=== PATIENT | male | born 1940 | race African-American/Black ===

== ENCOUNTER 2020-04-02 20:58 | Inpatient (IN) | payer OTHER, MEDICAID ==
[~2020-04-02] VITALS: Ht 170.2 cm; Wt 84.5 kg
[2020-04-03] MEDS ORDERED: SODIUM CHLORIDE 0.9% 1,000 ML IV ONE ×2 (01:45→03:00)
[2020-04-03] MEDS ORDERED: ASPIRIN 81MG TABLET PO ONE (01:45)
[2020-04-03 02:23] LABS: BASOPHILS % 0.3 % (0.0-2.0); HEMATOCRIT. 44.4 % (42.0-52.0); HEMOGLOBIN. 14.4 g/dL (14.0-18.0); LYMPHOCYTES % 8.7 % (20.0-50.0); MEAN CORPUSCULAR HEMOGLOBIN 30.6 pg (28.0-32.0); MEAN CORPUSCULAR VOLUME 94.1 fL (80.0-94.0); MEAN PLATELET VOLUME 8.5 fl (7.4-10.4); MONOCYTES % 5.1 % (2.0-8.0); NEUTROPHILS % 85.9 % (40.0-76.0); PLATELET 147 x1000/uL (130-400); RED BLOOD CELL COUNT 4.72 mill/uL (4.7-6.1); RED CELL DISTRIBUTION WIDTH 12.8 % (11.6-14.6)
[2020-04-03 02:30] LABS: CHLORIDE 95 mEq/L (98-107)
[2020-04-03 02:36] LABS: ETHANOL BLOOD < 10 mg/dL
[2020-04-03 02:40] LABS: BETA HYDROXYBUTYRATE 0.3 mMol/L (0.0-0.3)
[2020-04-03] MEDS ORDERED: INSULIN LISPRO 100 UNITS/ML SUBCUT NR (03:15)
[2020-04-03] MEDS ORDERED: ENOXAPARIN 100MG/ML SYR SUBCUT NR (03:45)
[2020-04-03 04:16] LABS: INR 1.4; PARTIAL THROMBOPLASTIN TIME 28.1 sec (23.4-31.0); PROTHROMBIN TIME 14.2 sec (9.6-11.0)
[2020-04-03 05:00] LABS: *BARBITURATES SCREEN URINE NEGATIVE (NEGATIVE); *BENZODIAZEPINES SCREEN URINE NEGATIVE (NEGATIVE); *COCAINE SCREEN URINE NEGATIVE (NEGATIVE)
[2020-04-03 05:01] LABS: *AMPHETAMINES SCREEN URINE NEGATIVE (NEGATIVE); CANNABINOID URINE SCREEN NEGATIVE (NEGATIVE); METHADONE URINE SCREEN NEGATIVE (NEGATIVE); OPIATES URINE SCREEN NEGATIVE (NEGATIVE); PHENCYCLIDINE URINE SCREEN NEGATIVE (NEGATIVE)
[2020-04-03] MEDS ORDERED: CEFTRIAXONE 1 G PREMIX 50 ML IV NR (14:00)
[2020-04-03] MEDS: ERGOCALCIFEROL 50000UNITS CAPSULE PO SCH (15:27)
[2020-04-03] MEDS: DOXYCYCLINE HYCLATE 100MG CAPSULE PO SCH ×2 (15:27→22:58)
[2020-04-03] MEDS ORDERED: DEXTROSE 50% WATER 50ML SYRINGE IV PRN (17:45)
[2020-04-03] MEDS ORDERED: ACETAMINOPHEN 325MG TABLET PO PRN (17:45)
[2020-04-03] MEDS ORDERED: ONDANSETRON HCL 4MG/2ML INJ IV PRN (17:45)
[2020-04-03] MEDS ORDERED: ALBUTEROL 6.7GM HFA INHALER ORI PRN (17:45)
[2020-04-03] MEDS ORDERED: MAGNESIUM/ALUMINUM HYDROXIDE/SIMETHICONE 30ML UDC PO PRN (17:45)
[2020-04-03] MEDS ORDERED: DIPHENHYDRAMINE 50MG/ML VIAL IV PRN (17:45)
[2020-04-03] MEDS ORDERED: ENOXAPARIN 100MG/ML SYR SUBCUT SCH (18:00)
[2020-04-03] MEDS ORDERED: DEXAMETHASONE 10 MG/ML VIAL IV SCH (18:00)
[2020-04-03] MEDS: INSULIN LISPRO 100 UNITS/ML SUBCUT SCH (18:20)
[2020-04-03] MEDS ORDERED: ZOLPIDEM TARTRATE 5MG TABLET PO PRN (21:00)
[2020-04-03] MEDS: BLOOD SUGAR DIAGNOSTIC STRIP TEST SCH (21:00)
[2020-04-03] MEDS: SODIUM CHLORIDE 0.9% INJ 3ML FLUSH IVF SCH (22:00)
[2020-04-03] MEDS: FAMOTIDINE 20MG TABLET PO SCH (22:58)
[2020-04-03] MEDS: INSULIN GLARGINE UD 100 UNITS/ML SYR SUBCUT SCH (22:59)
[2020-04-03] MEDS: GUAIFENESIN 600MG ER TABLET PO SCH (22:59)
[2020-04-04] MEDS: BLOOD SUGAR DIAGNOSTIC STRIP TEST SCH ×4 (07:30→21:00)
[2020-04-04] MEDS ORDERED: CEFTRIAXONE 1,000 MG in DEXTROSE 5% WATER 50 ML IV SCH (09:00)
[2020-04-04] MEDS: SODIUM CHLORIDE 0.9% INJ 3ML FLUSH IVF SCH ×3 (09:38→22:00)
[2020-04-04] MEDS ORDERED: CEFTRIAXONE SODIUM 1 G/VIAL ONE (09:38)
[2020-04-04 10:14] LABS: CHLORIDE 110 mEq/L (98-107)
[2020-04-04 10:16] LABS: HEMATOCRIT. 36.4 % (42.0-52.0); HEMOGLOBIN. 12.3 g/dL (14.0-18.0); MEAN CORPUSCULAR VOLUME 91.5 fL (80.0-94.0); MEAN PLATELET VOLUME 9.1 fl (7.4-10.4); PLATELET 116 x1000/uL (130-400); RED BLOOD CELL COUNT 3.97 mill/uL (4.7-6.1); RED CELL DISTRIBUTION WIDTH 12.7 % (11.6-14.6)
[2020-04-04] MEDS: INSULIN LISPRO 100 UNITS/ML SUBCUT SCH ×3 (12:00→21:00)
[2020-04-04] MEDS: DEXAMETHASONE 10 MG/ML VIAL IV SCH (13:06)
[2020-04-04] MEDS: GUAIFENESIN 600MG ER TABLET PO SCH ×2 (13:07→23:31)
[2020-04-04] MEDS: DOXYCYCLINE HYCLATE 100MG CAPSULE PO SCH ×2 (13:07→23:31)
[2020-04-04] MEDS: FAMOTIDINE 20MG TABLET PO SCH ×2 (13:07→23:31)
[2020-04-04 13:57] LABS: PLATELET ESTIMATE SLIGHTLY DECREASED
[2020-04-04] MEDS: INSULIN GLARGINE UD 100 UNITS/ML SYR SUBCUT SCH (23:32)
[2020-04-05 00:20] VITALS: BP 159/98
[2020-04-05 04:00] VITALS: BP 136/80
[2020-04-05] MEDS: SODIUM CHLORIDE 0.9% INJ 3ML FLUSH IVF SCH ×3 (05:21→23:23)
[2020-04-05] MEDS: BLOOD SUGAR DIAGNOSTIC STRIP TEST SCH ×4 (06:48→21:36)
[2020-04-05 08:00] VITALS: BP 131/85
[2020-04-05] MEDS: INSULIN LISPRO 100 UNITS/ML SUBCUT SCH ×4 (08:10→21:00)
[2020-04-05] MEDS: ENOXAPARIN 40MG/0.4ML SYR SUBCUT SCH ×2 (09:00→09:53)
[2020-04-05 09:39] LABS: BG CARBOXYHEMOGLOBIN 0.7 % (0.5-1.5); BG DEOXYHEMOGLOBIN 7.2 % (0.0-5.0); BG METHEMOGLOBIN 0.3 % (0.0-1.5); BG OXYGEN SATURATION 92.7 % (92.0-98.5); BG OXYHEMOGLOBIN 91.8 % (94.0-97.0); BG PCO2 37.9 mmHg (35.0-45.0); BG PH 7.438 (7.350-7.450); BG PO2 65.6 mmHg (75.0-100.0); BG SAMPLE SITE RIGHT RADIAL; BG TOTAL HEMOGLOBIN 13.9 g/dL (12.0-18.0); BG VENT MODE NASAL CANNULA
[2020-04-05] MEDS: DEXAMETHASONE 10 MG/ML VIAL IV SCH (09:51)
[2020-04-05] MEDS: CEFTRIAXONE 1,000 MG in DEXTROSE 5% WATER 50 ML IV SCH (09:51)
[2020-04-05] MEDS: GUAIFENESIN 600MG ER TABLET PO SCH ×2 (09:53→21:47)
[2020-04-05] MEDS: DOXYCYCLINE HYCLATE 100MG CAPSULE PO SCH ×2 (09:53→21:47)
[2020-04-05 12:00] VITALS: BP 137/80
[2020-04-05] MEDS: FAMOTIDINE 20MG TABLET PO SCH ×2 (12:42→21:47)
[2020-04-05 16:00] VITALS: BP 144/81
[2020-04-05 20:00] VITALS: BP 134/90
[2020-04-05] MEDS ORDERED: INSULIN GLARGINE UD 100 UNITS/ML SYR SUBCUT SCH (22:30)
[2020-04-06] VITALS: BP 119/61
[2020-04-06 04:00] VITALS: BP 142/93
[2020-04-06] MEDS: SODIUM CHLORIDE 0.9% INJ 3ML FLUSH IVF SCH ×3 (05:48→20:59)
[2020-04-06] MEDS: BLOOD SUGAR DIAGNOSTIC STRIP TEST SCH ×4 (06:48→20:59)
[2020-04-06 08:00] VITALS: BP 168/88
[2020-04-06] MEDS: INSULIN LISPRO 100 UNITS/ML SUBCUT SCH ×4 (08:10→20:59)
[2020-04-06] MEDS: CEFTRIAXONE 1,000 MG in DEXTROSE 5% WATER 50 ML IV SCH (09:25)
[2020-04-06] MEDS: FAMOTIDINE 20MG TABLET PO SCH ×2 (09:26→20:58)
[2020-04-06] MEDS: GUAIFENESIN 600MG ER TABLET PO SCH ×2 (09:26→20:59)
[2020-04-06] MEDS: DOXYCYCLINE HYCLATE 100MG CAPSULE PO SCH ×2 (09:26→20:58)
[2020-04-06] MEDS: ENOXAPARIN 40MG/0.4ML SYR SUBCUT SCH (09:26)
[2020-04-06] MEDS: DEXAMETHASONE 10 MG/ML VIAL IV SCH (09:27)
[2020-04-06 12:00] VITALS: BP 144/93
[2020-04-06 12:35] LABS: BG BASE EXCESS 2.3 mmol/L (-2.0-2.0); BG CARBOXYHEMOGLOBIN 0.4 % (0.5-1.5); BG DEOXYHEMOGLOBIN 5.6 % (0.0-5.0); BG HCO3 ACT 27.1 mmol/L (22.0-26.0); BG METHEMOGLOBIN 0.3 % (0.0-1.5); BG OXYGEN SATURATION 94.4 % (92.0-98.5); BG OXYHEMOGLOBIN 93.7 % (94.0-97.0); BG PCO2 42.9 mmHg (35.0-45.0); BG PH 7.419 (7.350-7.450); BG PO2 75.7 mmHg (75.0-100.0); BG SAMPLE SITE RIGHT RADIAL; BG TOTAL HEMOGLOBIN 13.5 g/dL (12.0-18.0); BG VENT MODE NASAL CANNULA
[2020-04-06 16:00] VITALS: BP 136/86
[2020-04-06 20:00] VITALS: BP 141/95
[2020-04-06] MEDS: INSULIN GLARGINE UD 100 UNITS/ML SYR SUBCUT SCH (21:00)
[2020-04-07] VITALS: BP 141/80
[2020-04-07 06:00] VITALS: BP 144/84
[2020-04-07] MEDS: SODIUM CHLORIDE 0.9% INJ 3ML FLUSH IVF SCH ×3 (06:48→21:07)
[2020-04-07] MEDS: BLOOD SUGAR DIAGNOSTIC STRIP TEST SCH ×4 (06:48→21:06)
[2020-04-07] MEDS: INSULIN LISPRO 100 UNITS/ML SUBCUT SCH ×4 (06:48→21:06)
[2020-04-07 08:00] VITALS: BP 134/80
[2020-04-07] MEDS: GUAIFENESIN 600MG ER TABLET PO SCH ×2 (09:33→21:06)
[2020-04-07] MEDS: FAMOTIDINE 20MG TABLET PO SCH ×2 (09:33→21:06)
[2020-04-07] MEDS: DOXYCYCLINE HYCLATE 100MG CAPSULE PO SCH ×2 (09:33→21:06)
[2020-04-07] MEDS: ENOXAPARIN 40MG/0.4ML SYR SUBCUT SCH (09:33)
[2020-04-07 12:00] VITALS: BP 134/83
[2020-04-07] MEDS: DEXAMETHASONE 10 MG/ML VIAL IV SCH (13:33)
[2020-04-07] MEDS: CEFTRIAXONE 1,000 MG in DEXTROSE 5% WATER 50 ML IV SCH (13:33)
[2020-04-07 20:00] VITALS: BP 143/81
[2020-04-07] MEDS: INSULIN GLARGINE UD 100 UNITS/ML SYR SUBCUT SCH (21:05)
[2020-04-08 00:07] VITALS: BP 124/76
[2020-04-08 04:00] VITALS: BP 133/79
[2020-04-08] MEDS: SODIUM CHLORIDE 0.9% INJ 3ML FLUSH IVF SCH ×3 (06:00→20:15)
[2020-04-08] MEDS: BLOOD SUGAR DIAGNOSTIC STRIP TEST SCH ×4 (07:40→20:15)
[2020-04-08 08:00] VITALS: BP 133/80
[2020-04-08] MEDS: INSULIN LISPRO 100 UNITS/ML SUBCUT SCH ×4 (08:10→20:15)
[2020-04-08] MEDS: DEXAMETHASONE 10 MG/ML VIAL IV SCH (09:13)
[2020-04-08] MEDS: FAMOTIDINE 20MG TABLET PO SCH ×2 (09:13→20:14)
[2020-04-08] MEDS: CEFTRIAXONE 1,000 MG in DEXTROSE 5% WATER 50 ML IV SCH (09:13)
[2020-04-08] MEDS: GUAIFENESIN 600MG ER TABLET PO SCH ×2 (09:14→20:14)
[2020-04-08] MEDS: DOXYCYCLINE HYCLATE 100MG CAPSULE PO SCH ×2 (09:14→20:14)
[2020-04-08] MEDS: ENOXAPARIN 40MG/0.4ML SYR SUBCUT SCH (09:14)
[2020-04-08 12:00] VITALS: BP 123/82
[2020-04-08 16:00] VITALS: BP 112/77
[2020-04-08 20:00] VITALS: BP 102/61
[2020-04-09] VITALS: BP 145/83
[2020-04-09 04:00] VITALS: BP 115/64
[2020-04-09] MEDS: INSULIN GLARGINE UD 100 UNITS/ML SYR SUBCUT SCH ×2 (04:38→22:35)
[2020-04-09 08:00] VITALS: BP 126/71
[2020-04-09] MEDS: INSULIN LISPRO 100 UNITS/ML SUBCUT SCH ×4 (08:10→21:00)
[2020-04-09] MEDS: BLOOD SUGAR DIAGNOSTIC STRIP TEST SCH ×4 (08:17→21:00)
[2020-04-09] MEDS: ENOXAPARIN 40MG/0.4ML SYR SUBCUT SCH (08:36)
[2020-04-09] MEDS: GUAIFENESIN 600MG ER TABLET PO SCH ×2 (08:37→22:29)
[2020-04-09] MEDS: DOXYCYCLINE HYCLATE 100MG CAPSULE PO SCH ×2 (08:37→22:29)
[2020-04-09] MEDS: FAMOTIDINE 20MG TABLET PO SCH ×2 (08:37→22:29)
[2020-04-09] MEDS: DEXAMETHASONE 10 MG/ML VIAL IV SCH (08:41)
[2020-04-09 12:00] VITALS: BP 118/71
[2020-04-09 15:50] VITALS: BP 123/74
[2020-04-09 20:00] VITALS: BP 121/55
[2020-04-09] MEDS: SODIUM CHLORIDE 0.9% INJ 3ML FLUSH IVF SCH ×2 (22:00→22:29)
[2020-04-10] VITALS: BP 118/77
[2020-04-10 04:00] VITALS: BP 110/70
[2020-04-10] MEDS: SODIUM CHLORIDE 0.9% INJ 3ML FLUSH IVF SCH ×3 (05:46→22:40)
[2020-04-10] MEDS: BENZONATATE 100MG CAPSULE PO PRN (06:45)
[2020-04-10] MEDS: BLOOD SUGAR DIAGNOSTIC STRIP TEST SCH ×4 (06:53→21:00)
[2020-04-10 08:00] VITALS: BP 114/74
[2020-04-10] MEDS: DEXAMETHASONE 10 MG/ML VIAL IV SCH (08:47)
[2020-04-10] MEDS: DOXYCYCLINE HYCLATE 100MG CAPSULE PO SCH (08:47)
[2020-04-10] MEDS: GUAIFENESIN 600MG ER TABLET PO SCH ×2 (08:47→22:40)
[2020-04-10] MEDS: ERGOCALCIFEROL 50000UNITS CAPSULE PO SCH (08:47)
[2020-04-10] MEDS: ENOXAPARIN 40MG/0.4ML SYR SUBCUT SCH (08:47)
[2020-04-10] MEDS: FAMOTIDINE 20MG TABLET PO SCH ×2 (08:47→22:40)
[2020-04-10] MEDS: INSULIN LISPRO 100 UNITS/ML SUBCUT SCH ×4 (08:49→22:56)
[2020-04-10 12:00] VITALS: BP 136/81
[2020-04-10 16:00] VITALS: BP 107/66
[2020-04-10 20:00] VITALS: BP 114/65
[2020-04-10] MEDS: INSULIN GLARGINE UD 100 UNITS/ML SYR SUBCUT SCH (22:51)
[2020-04-11] VITALS: BP 131/80
[2020-04-11] MEDS: BENZONATATE 100MG CAPSULE PO PRN (01:52)
[2020-04-11 04:00] VITALS: BP 124/75
[2020-04-11] MEDS: SODIUM CHLORIDE 0.9% INJ 3ML FLUSH IVF SCH ×3 (06:27→21:39)
[2020-04-11] MEDS: INSULIN LISPRO 100 UNITS/ML SUBCUT SCH ×4 (07:05→21:38)
[2020-04-11] MEDS: BLOOD SUGAR DIAGNOSTIC STRIP TEST SCH ×4 (07:05→21:36)
[2020-04-11 08:00] VITALS: BP 118/74
[2020-04-11] MEDS: FAMOTIDINE 20MG TABLET PO SCH ×2 (09:21→21:36)
[2020-04-11] MEDS: GUAIFENESIN 600MG ER TABLET PO SCH ×2 (09:21→21:36)
[2020-04-11] MEDS: DEXAMETHASONE 10 MG/ML VIAL IV SCH (09:21)
[2020-04-11] MEDS: ENOXAPARIN 40MG/0.4ML SYR SUBCUT SCH (09:21)
[2020-04-11 12:00] VITALS: BP 114/72
[2020-04-11 16:00] VITALS: BP 126/61
[2020-04-11 20:00] VITALS: BP 130/69
[2020-04-11] MEDS: INSULIN GLARGINE UD 100 UNITS/ML SYR SUBCUT SCH (22:59)
[2020-04-12] VITALS: BP 128/65
[2020-04-12 04:00] VITALS: BP 137/87
[2020-04-12] MEDS: BLOOD SUGAR DIAGNOSTIC STRIP TEST SCH ×4 (06:18→21:40)
[2020-04-12] MEDS: SODIUM CHLORIDE 0.9% INJ 3ML FLUSH IVF SCH ×3 (06:18→21:40)
[2020-04-12] MEDS: INSULIN LISPRO 100 UNITS/ML SUBCUT SCH ×4 (06:18→21:00)
[2020-04-12 07:25] LABS: HEMATOCRIT. 42.3 % (42.0-52.0); HEMOGLOBIN. 13.8 g/dL (14.0-18.0); MEAN CORPUSCULAR HEMOGLOBIN 30.6 pg (28.0-32.0); MEAN PLATELET VOLUME 9.9 fl (7.4-10.4); PLATELET 154 x1000/uL (130-400); RED CELL DISTRIBUTION WIDTH 12.8 % (11.6-14.6)
[2020-04-12 08:00] VITALS: BP 118/65
[2020-04-12] MEDS: FAMOTIDINE 20MG TABLET PO SCH ×2 (08:46→21:39)
[2020-04-12] MEDS: DEXAMETHASONE 10 MG/ML VIAL IV SCH (08:46)
[2020-04-12] MEDS: GUAIFENESIN 600MG ER TABLET PO SCH ×2 (08:46→21:39)
[2020-04-12] MEDS: ENOXAPARIN 40MG/0.4ML SYR SUBCUT SCH (08:46)
[2020-04-12 12:00] VITALS: BP 108/69
[2020-04-12 16:00] VITALS: BP 112/69
[2020-04-12 20:00] VITALS: BP_SYST 126; BP_SYST 137; BP_DIAS 78; BP_DIAS 83
[2020-04-12] MEDS: INSULIN GLARGINE UD 100 UNITS/ML SYR SUBCUT SCH (21:40)
[2020-04-12 22:21] LABS: PLATELET ESTIMATE NORMAL
[2020-04-13] VITALS: BP_SYST 116; BP_SYST 137; BP_DIAS 76; BP_DIAS 77
[2020-04-13 04:00] VITALS: BP 124/82
[2020-04-13] MEDS: SODIUM CHLORIDE 0.9% INJ 3ML FLUSH IVF SCH ×3 (05:54→21:21)
[2020-04-13] MEDS: INSULIN LISPRO 100 UNITS/ML SUBCUT SCH ×4 (05:57→21:22)
[2020-04-13] MEDS: BLOOD SUGAR DIAGNOSTIC STRIP TEST SCH ×4 (05:57→21:21)
[2020-04-13 08:00] VITALS: BP 119/67
[2020-04-13] MEDS: DEXAMETHASONE 10 MG/ML VIAL IV SCH (09:35)
[2020-04-13] MEDS: GUAIFENESIN 600MG ER TABLET PO SCH ×2 (09:35→21:00)
[2020-04-13] MEDS: ENOXAPARIN 40MG/0.4ML SYR SUBCUT SCH (09:35)
[2020-04-13] MEDS: FAMOTIDINE 20MG TABLET PO SCH ×2 (09:35→21:20)
[2020-04-13 12:00] VITALS: BP 132/74
[2020-04-13 16:00] VITALS: BP 125/68
[2020-04-13] MEDS: ACETAMINOPHEN 325MG TABLET PO PRN (17:20)
[2020-04-13 20:00] VITALS: BP 120/70
[2020-04-13] MEDS: INSULIN GLARGINE UD 100 UNITS/ML SYR SUBCUT SCH (21:54)
[2020-04-14] VITALS (7 sets, daily range): BP systolic 106–157; BP diastolic 66–81
[2020-04-14] MEDS: BLOOD SUGAR DIAGNOSTIC STRIP TEST SCH ×4 (07:01→21:02)
[2020-04-14 07:10] LABS: CHLORIDE 102 mEq/L (98-107)
[2020-04-14] MEDS: INSULIN LISPRO 100 UNITS/ML SUBCUT SCH ×4 (07:22→21:22)
[2020-04-14 07:58] LABS: HEMATOCRIT. 41.8 % (42.0-52.0); HEMOGLOBIN. 13.6 g/dL (14.0-18.0); MEAN CORPUSCULAR HEMOGLOBIN 30.4 pg (28.0-32.0); MEAN CORPUSCULAR VOLUME 93.3 fL (80.0-94.0); MEAN PLATELET VOLUME 9.3 fl (7.4-10.4); PLATELET 185 x1000/uL (130-400); RED BLOOD CELL COUNT 4.48 mill/uL (4.7-6.1); RED CELL DISTRIBUTION WIDTH 12.9 % (11.6-14.6)
[2020-04-14] MEDS: ENOXAPARIN 40MG/0.4ML SYR SUBCUT SCH (08:50)
[2020-04-14] MEDS: FAMOTIDINE 20MG TABLET PO SCH ×2 (08:51→21:01)
[2020-04-14] MEDS: GUAIFENESIN 600MG ER TABLET PO SCH ×2 (08:51→21:01)
[2020-04-14] MEDS: DEXAMETHASONE 10 MG/ML VIAL IV SCH (08:51)
[2020-04-14 10:18] LABS: PLATELET ESTIMATE NORMAL
[2020-04-14] MEDS: SODIUM CHLORIDE 0.9% INJ 3ML FLUSH IVF SCH (21:02)
[2020-04-14] MEDS: INSULIN GLARGINE UD 100 UNITS/ML SYR SUBCUT SCH (23:01)
[2020-04-15] VITALS: BP 97/68
[2020-04-15 04:00] VITALS: BP 138/77
[2020-04-15] MEDS: SODIUM CHLORIDE 0.9% INJ 3ML FLUSH IVF SCH ×3 (06:58→21:29)
[2020-04-15] MEDS: BLOOD SUGAR DIAGNOSTIC STRIP TEST SCH ×4 (07:33→21:37)
[2020-04-15] MEDS: INSULIN LISPRO 100 UNITS/ML SUBCUT SCH ×4 (07:43→21:00)
[2020-04-15 08:00] VITALS: BP 153/87
[2020-04-15] MEDS: ENOXAPARIN 40MG/0.4ML SYR SUBCUT SCH (08:45)
[2020-04-15] MEDS: GUAIFENESIN 600MG ER TABLET PO SCH ×2 (08:45→21:29)
[2020-04-15] MEDS: FAMOTIDINE 20MG TABLET PO SCH ×2 (10:33→21:29)
[2020-04-15 12:00] VITALS: BP 135/75
[2020-04-15 16:00] VITALS: BP 106/68
[2020-04-15 20:00] VITALS: BP 111/69
[2020-04-15] MEDS: INSULIN GLARGINE UD 100 UNITS/ML SYR SUBCUT SCH (21:37)
[2020-04-16] VITALS: BP 113/69
[2020-04-16] MEDS: ACETAMINOPHEN 325MG TABLET PO PRN (01:45)
[2020-04-16 04:00] VITALS: BP 104/70
[2020-04-16] MEDS: SODIUM CHLORIDE 0.9% INJ 3ML FLUSH IVF SCH ×3 (05:34→22:45)
[2020-04-16] MEDS: BLOOD SUGAR DIAGNOSTIC STRIP TEST SCH ×4 (05:59→21:00)
[2020-04-16 08:00] VITALS: BP 116/74
[2020-04-16] MEDS: INSULIN LISPRO 100 UNITS/ML SUBCUT SCH ×4 (08:10→21:00)
[2020-04-16] MEDS: FAMOTIDINE 20MG TABLET PO SCH ×2 (08:51→22:44)
[2020-04-16] MEDS: GUAIFENESIN 600MG ER TABLET PO SCH ×2 (08:51→22:44)
[2020-04-16] MEDS: ENOXAPARIN 40MG/0.4ML SYR SUBCUT SCH (08:51)
[2020-04-16 12:00] VITALS: BP 100/62
[2020-04-16 16:00] VITALS: BP 135/76
[2020-04-16 20:00] VITALS: BP 140/83
[2020-04-16] MEDS: INSULIN GLARGINE UD 100 UNITS/ML SYR SUBCUT SCH (22:47)
[2020-04-17] VITALS (60 sets, daily range): BP systolic 51–202; BP diastolic 16–131
[2020-04-17] MEDS: BLOOD SUGAR DIAGNOSTIC STRIP TEST SCH ×4 (06:15→21:12)
[2020-04-17] MEDS: INSULIN LISPRO 100 UNITS/ML SUBCUT SCH ×4 (06:16→21:00)
[2020-04-17] MEDS: SODIUM CHLORIDE 0.9% INJ 3ML FLUSH IVF SCH ×3 (06:16→21:12)
[2020-04-17] MEDS: GUAIFENESIN 600MG ER TABLET PO SCH ×2 (09:00→21:13)
[2020-04-17] MEDS ORDERED: PROPOFOL 10MG/ML 100ML 100 ML IV SCH (10:30)
[2020-04-17] MEDS: FAMOTIDINE 20MG TABLET PO SCH ×2 (10:30→21:13)
[2020-04-17] MEDS ORDERED: FENTANYL CITRATE/PF 2,500 MCG in SODIUM CHLORIDE 0.9% 200 ML IV PRN (10:30)
[2020-04-17] MEDS: ERGOCALCIFEROL 50000UNITS CAPSULE PO SCH (10:30)
[2020-04-17 11:43] LABS: BASOPHILS % 0.6 % (0.0-2.0); EOSINOPHILS % 0.3 % (0.0-5.0); HEMATOCRIT. 44.9 % (42.0-52.0); HEMOGLOBIN. 13.9 g/dL (14.0-18.0); LYMPHOCYTES % 10.9 % (20.0-50.0); MEAN CORPUSCULAR HEMOGLOBIN 30.4 pg (28.0-32.0); MEAN CORPUSCULAR VOLUME 98.3 fL (80.0-94.0); MEAN PLATELET VOLUME 9.1 fl (7.4-10.4); MONOCYTES % 1.8 % (2.0-8.0); NEUTROPHILS % 86.4 % (40.0-76.0); PLATELET 179 x1000/uL (130-400); RED BLOOD CELL COUNT 4.56 mill/uL (4.7-6.1); RED CELL DISTRIBUTION WIDTH 13.7 % (11.6-14.6)
[2020-04-17 11:49] LABS: CHLORIDE 102 mEq/L (98-107)
[2020-04-17] MEDS: PHENYLEPHRINE 100 MG in DEXT 5% WATER 240 ML IV PRN ×2 (12:01→19:20)
[2020-04-17] MEDS ORDERED: MIDAZOLAM HCL 100 MG in DEXT 5% WATER 80 ML IV PRN (12:15)
[2020-04-17 12:42] LABS: BG BASE EXCESS 0.5 mmol/L (-2.0-2.0); BG CARBOXYHEMOGLOBIN 0.1 % (0.5-1.5); BG DEOXYHEMOGLOBIN 6.4 % (0.0-5.0); BG METHEMOGLOBIN 0.1 % (0.0-1.5); BG OXYGEN SATURATION 93.6 % (92.0-98.5); BG OXYHEMOGLOBIN 93.4 % (94.0-97.0); BG PCO2 129.5 mmHg (35.0-45.0); BG PO2 101.1 mmHg (75.0-100.0); BG SAMPLE SITE RIGHT BRACHIAL; BG TOTAL HEMOGLOBIN 13.8 g/dL (12.0-18.0); BG VENT MODE VENT- PRVC
[2020-04-17 13:11] LABS: PHOSPHORUS 9.4 mg/dL (2.5-4.9)
[2020-04-17] MEDS: VASOPRESSIN 20 UNIT in SODIUM CHLORIDE 0.9% 99 ML IV PRN (15:49)
[2020-04-17] MEDS: MEROPENEM 1,000 MG in SODIUM CHLORIDE 0.9% 100 ML IV SCH ×2 (15:50→23:07)
[2020-04-17] MEDS: METHYLPREDNISOLONE SOD SUCC 40 MG/ML VIAL IV SCH ×2 (15:50→21:13)
[2020-04-17] MEDS: ENOXAPARIN 40MG/0.4ML SYR SUBCUT SCH (15:51)
[2020-04-17] MEDS: NOREPINEPHRINE 32 MG in DEXT 5% WATER 218 ML IV PRN ×2 (16:38→23:34)
[2020-04-17] MEDS ORDERED: VANCOMYCIN 1,500 MG in SODIUM CHLORIDE 0.9% 250 ML IV SCH (17:00)
[2020-04-17] MEDS: EPINEPHRINE 10 MG in SODIUM CHLORIDE 0.9% 240 ML IV PRN ×2 (17:33→23:35)
[2020-04-17] MEDS: INSULIN GLARGINE UD 100 UNITS/ML SYR SUBCUT SCH (21:12)
[2020-04-18] VITALS (27 sets, daily range): BP systolic 61–180; BP diastolic 25–76
[2020-04-18] MEDS: EPINEPHRINE 10 MG in SODIUM CHLORIDE 0.9% 240 ML IV PRN ×5 (01:20→09:02)
[2020-04-18] MEDS: VASOPRESSIN 20 UNIT in SODIUM CHLORIDE 0.9% 99 ML IV PRN (02:47)
[2020-04-18] MEDS: PHENYLEPHRINE 100 MG in DEXT 5% WATER 240 ML IV PRN (02:48)
[2020-04-18 03:12] LABS: BG BASE EXCESS -18.6 mmol/L (-2.0-2.0); BG CARBOXYHEMOGLOBIN 0.6 % (0.5-1.5); BG DEOXYHEMOGLOBIN 6.7 % (0.0-5.0); BG FRACTION INSPIRED OXYGEN 100; BG HCO3 ACT 12.6 mmol/L (22.0-26.0); BG METHEMOGLOBIN 0.1 % (0.0-1.5); BG OXYGEN SATURATION 93.3 % (92.0-98.5); BG OXYHEMOGLOBIN 92.6 % (94.0-97.0); BG PCO2 53.1 mmHg (35.0-45.0); BG PH 6.993 (7.350-7.450); BG PO2 86.1 mmHg (75.0-100.0); BG SAMPLE SITE RIGHT RADIAL; BG TOTAL HEMOGLOBIN 12.1 g/dL (12.0-18.0); BG VENT MODE VENT - AC
[2020-04-18] MEDS ORDERED: SODIUM BICARBONATE 8.4% 1 MEQ/ML 50ML SYR IV NR (03:30)
[2020-04-18] MEDS ORDERED: SODIUM BICARBONATE 100 MEQ in DEXTROSE 5% WATER 1,000 ML IV SCH (04:00)
[2020-04-18] MEDS: SODIUM CHLORIDE 0.9% INJ 3ML FLUSH IVF SCH (05:02)
[2020-04-18] MEDS: MEROPENEM 1,000 MG in SODIUM CHLORIDE 0.9% 100 ML IV SCH (05:02)
[2020-04-18] MEDS: METHYLPREDNISOLONE SOD SUCC 40 MG/ML VIAL IV SCH (05:05)
[2020-04-18] MEDS: IPRATROPIUM BROMIDE (0.02%) 0.5MG/2.5ML NEB HHN SCH ×2 (05:35→07:26)
[2020-04-18] MEDS ORDERED: VANCOMYCIN 750 MG PREMIX 150 ML IV SCH (06:00)
[2020-04-18 06:27] LABS: BASOPHILS % 0.6 % (0.0-2.0); EOSINOPHILS % 1.2 % (0.0-5.0); HEMATOCRIT. 39.1 % (42.0-52.0); HEMOGLOBIN. 11.3 g/dL (14.0-18.0); LYMPHOCYTES % 8.7 % (20.0-50.0); MEAN CORPUSCULAR HEMOGLOBIN 30.5 pg (28.0-32.0); MEAN CORPUSCULAR VOLUME 105.4 fL (80.0-94.0); MEAN PLATELET VOLUME 10.2 fl (7.4-10.4); MONOCYTES % 2.4 % (2.0-8.0); NEUTROPHILS % 87.1 % (40.0-76.0); PLATELET 82 x1000/uL (130-400); RED BLOOD CELL COUNT 3.71 mill/uL (4.7-6.1); RED CELL DISTRIBUTION WIDTH 14.5 % (11.6-14.6)
[2020-04-18 06:57] LABS: CHLORIDE 101 mEq/L (98-107)
[2020-04-18] MEDS: BLOOD SUGAR DIAGNOSTIC STRIP TEST SCH (07:50)
[2020-04-18] MEDS ORDERED: DEXTROSE 50% WATER 50ML SYRINGE IV ONE (08:00)
[2020-04-18] MEDS ORDERED: SODIUM BICARBONATE 8.4% 1 MEQ/ML 50ML SYR IV ONE (08:00)
[2020-04-18] MEDS ORDERED: EPINEPHRINE 0.1MG/ML (1:10,000) 10ML SYR ONE (08:00)
[2020-04-18] MEDS ORDERED: CALCIUM CHLORIDE 1GM/10ML SYR IV ONE (08:00)
[2020-04-18] MEDS: INSULIN LISPRO 100 UNITS/ML SUBCUT SCH (08:20)
[2020-04-18] MEDS ORDERED: INSULIN REGULAR (HUMULIN R) 300UNITS/3ML VIAL IV NR (10:00)
[2020-04-18] MEDS ORDERED: DEXTROSE 50% WATER 50ML SYRINGE IV NR (10:00)
[2020-04-18 10:17] LABS: CREATINE KINASE 2232 IU/L (39-308)
== END 2020-04-18 10:11 | disposition expired | DRG 871 ==
LOC: ER 20:58 → EDBD 20:58 → MICUSO 04-03 03:16 → 7WST 04-04 23:09 → CVICU 04-17 10:41
PROVIDERS: ADMIT Internal Medicine; ATTEND Internal Medicine
PROC: 06HY33Z Insertion of Infusion Device into Lower Vein, Percutaneous Approach (ICD-10-PCS; 2020-04-03)
PROC: 0BH18EZ Insertion of Endotracheal Airway into Trachea, Via Natural or Artificial Opening Endoscopic (ICD-10-PCS; 2020-04-03)
PROC: 5A12012 Performance of Cardiac Output, Single, Manual (ICD-10-PCS; principal; 2020-04-17)
PROC: 5A1935Z Respiratory Ventilation, Less than 24 Consecutive Hours (ICD-10-PCS; 2020-04-17)
DX: A41.89 Other specified sepsis (principal); U07.1 COVID-19; J96.01 Acute respiratory failure with hypoxia; I21.4 Non-ST elevation (NSTEMI) myocardial infarction; J12.82 Pneumonia due to coronavirus disease 2019; E44.0 Moderate protein-calorie malnutrition; E87.2 Acidosis; D72.810 Lymphocytopenia; R74.01 Elevation of levels of liver transaminase levels; E11.65 Type 2 diabetes mellitus with hyperglycemia; B97.89 Other viral agents as the cause of diseases classified elsewhere; Z51.5 Encounter for palliative care; Z66 Do not resuscitate; R65.20 Severe sepsis without septic shock; Z91.14 Patient's other noncompliance with medication regimen; Z91.19 Patient's noncompliance with other medical treatment and regimen; Z68.29 Body mass index [BMI] 29.0-29.9, adult; Z86.74 Personal history of sudden cardiac arrest; Z79.899 Other long term (current) drug therapy
CPT/HCPCS: 36415; 36600; 71045; 80048; 80053; 80076; 80305; 80320; 82010; 82375; 82550; 82728; 82805; 82962; 83036; 83605; 83735; 83880; 84100; 84145; 84478; 84484; 85025; 86140; 92950; 94002; 94003; 94640; 99291; C1893; C9803; J0696; J1100; J1650; J1815; J2185; J2370; J2920; J3010; J3370; J3490; J7030; J7040; J7050; J7060; J7070; U0003; G0480